=== PATIENT | male | born 1940 | race Caucasian/White ===

== ENCOUNTER 2023-10-10 10:17 | Outpatient (CLI) | payer MEDICARE, OTHER ==
--- NOTE | 2023-10-10 11:24 | Sleep Patient Instructions ---
Sleep Center Visit Summary - Patient Visit Information Reason for Visit: Initial consultation - Patient Instructions Additional Instructions: You will continue with CPAP therapy with pressure set at 12-18 cmH2O. A supply prescription will be updated with your DME. We encourage you to continue to try to lose weight. Please follow up with the sleep care office in 1 year. - Clinic Information Contact: [facility] [address] [place] [address] [email or web address] T: [phone]
--- NOTE | 2023-10-10 11:29 | SLEEP CARE CONSULTATION ---
Information from patient questionnaire entered by Solis Luther. I have reviewed and concur with the information entered by Solis Luther. This document represents the service I personally performed and the decisions made by me, Leilani Sanders ARNP. History of Present Illness Service Date and Time: 10/10/2023 1017 Reason for Visit: New patient, Previously diagnosed sleep apnea, sleep apnea on CPAP therapy, Other (Change of services) Accompanied by: Spouse (December) Date of Onset: 08/05/2014 Usual bedtime: 2300 Snores at night: Yes (Used to) Observed to quit breathing while asleep: Yes Sleeps alone due to snoring: No Reasons for waking at night: reports: Bathroom Toss, Turn, or Twitch while sleeping: No Recalls having dreams: Yes Usually gets out of bed at: 0800 Feels refreshed in the morning: Yes Morning headache: No Sleepy or fatigued during the day: No Ever fallen asleep while driving: No Takes day naps: No Dreams during day naps: No (N/A) Prior sleep studies: Yes Year and Where: [address] [facility] Type of Sleep Study: Polysomnography (Split night) Additional HPI information: LENKA HERRERA was previously diagnosed to have very severe, AHI 68.1, obstructive sleep apnea-hypopnea syndrome in sleep study at [facility] on 08/25/2017 and comes in today with spouse to establish care for CPAP therapy. - Parasomnia Symptoms Ever been unable to move upon waking from sleep: No Walks in sleep: No Talks in sleep: Yes Ever acted out dreams in sleep: No Ever felt weak in the knees when startled or emotional: No CPAP Compliance Data - Data Reviewed with Patient Average duration of nightly device use: 8 hours 59 minutes Compliance rate %: 100 (08/13/2023-10/09/2023; 58/58 days used) Current pressure setting (cmH2O): 12-18 Average residual AHI: 3 Central apnea: 0.5 Obstructive apnea: 0.4 Hypopnea: 2 Average large leak: 1.2 L/min Compliance data discussion: He has a ResMed Airsense 10 that he received in August 2023. He is using [employer] in [place] for his supplies. He is using a ResMed AirTouch F20, medium cushion. Subjective Missed days of use due to: reports: other (machine broke in Jun and had to wait until replaced in August to use again) Patient concerns: denies: aerophagia, mask discomfort, air blowing in eyes, mask leak noise, condensation in mask/hose, nasal congestion, dry mouth, nose, throat, epistaxis Observed to snore while using device: No Current pressure setting perceived as: comfortable On therapy, patient: reports: sleeping better, awakening more refreshed, being more awake and alert during the day, more rested overall. denies: drowsiness while driving Initial [facility] Sleepiness Scale score: 0 (in 2023) Past Medical History Past Medical History: reports: Hypertension, Arthritis, Gout Social History The patient's occupation is a retiree. Patient is and lives in [place]. Have you smoked in the past 12 months: No Alcohol use: Yes Alcohol amount and frequency: 2 glasses, 3-4 times a week Caffeine use: Yes Caffeine amount and frequency: 1 cup of coffee in the AM Family History Family history of sleep disordered breathing: Yes Family Hx Sleep Apnea: Sibling: Snoring, Sleep apnea - Treated Allergies and Home Medications Known drug allergies: No Drug allergies reviewed: Yes Home medication list reviewed: Yes (as listed) Allergy and home medication list: Allergies No Known Drug Allergies Allergy (Verified 10/10/23 11:10) Home Medications Allopurinol 300 mg ORAL DAILY 10/10/23 [History] Cranberry See Rx Instructions .ROUTE .COMPLEX 10/10/23 [History] Gabapentin 300 mg ORAL HS 10/10/23 [History] Glucosamine Chondroitin Cap See Rx Instructions .ROUTE .COMPLEX 10/10/23 [History] Lovastatin 20 mg ORAL DAILY 10/10/23 [History] Metoprolol Succinate 50 mg ORAL DAILY 10/10/23 [History] Multivitamin See Rx Instructions .ROUTE .COMPLEX 10/10/23 [History] Tamsulosin 0.4 mg ORAL DAILY 10/10/23 [History] hydroCHLOROthiazide 25 mg ORAL DAILY 10/10/23 [History] Review of Systems Cardiovascular: reports: high blood pressure Respiratory: reports: other (Sinus problem). denies: shortness of breath Gastrointestinal: denies: heartburn Neurological: denies: headaches Psychiatric: denies: anxiety, depression Ear/Nose/Throat: reports: sinus problems Musculoskeletal: reports: joint pain (/stiffness), back pain, muscle pain or cramping (sometimes) Immunologic: reports: sneezing (/runny nose) Physical Exam Vital signs obtained and entered by: Leilani Lockwood NP Blood Pressure: 119/64 Cuff size: regular Heart Rate: 42 O2 Saturation: 97 Height: 5 ft 10 in Weight: 329 lb 3.2 oz Body Mass Index: 47.2 BMI Classification: Morbidly Obese Heart: regular rate and rhythm Lungs: clear bilaterally Impression and Plan 1. Obstructive Sleep Apnea-Hypopnea Syndrome, very severe, with good treatment compliance and good apnea control. On CPAP therapy, the patient has better sleep quality and is more rested overall. Patient states he had his machine stopped working that he had gotten through the [employer] recall, DreamStation 2. He was finally able to get a replacement and now has a ResMed air sense 10 that is working well. Patient has significant improvement of their sleep apnea and is satisfied with current CPAP therapy. Patient denies problems with oral dryness, nasal congestion, epistaxis, skin irritation or aerophagia. Patient's apnea severity and rationale for treatment to reduce apnea, improve sleep quality and reduce cardiovascular and cerebrovascular events was reviewed. I also reviewed the benefit of consistent device use of CPAP for hypertension. 2. Obesity, unspecified. Currently patients BMI is 47.2. Obesity increases the risk of apnea, CPAP pressure requirements and overall health risks especially cardiovascular and diabetes. Thus patient is advised to lose weight. * Continue auto CPAP pressure at 12-18 cmH2O * Update supply prescription * Notify me if snoring with mask or feeling that the pressure is too much or too little * Attempt to lose weight * Call this office if any problems using CPAP * Return for follow up in 12 months, or sooner if concerns arise Counseling Topics: Spare mask, Weight loss health impact Prescriptions: Device supplies Follow up with Sleep Care in: 1 year Visit Type: In Office Time Spent with Patient (minutes): 48 Provider Statement: I spent 100% of the Face to Face Visit with the patient with greater than 50% spent counseling the patient and coordination of care.
[2023-10-10 11:30] VITALS: BP 119/64; O2SAT 97
== END 2023-10-10 10:18 | disposition home or self-care (01) ==
LOC: SC 10:17
PROVIDERS: ATTEND Nurse Practitioner Family
DX: G47.33 Obstructive sleep apnea (adult) (pediatric) (principal); E66.01 Morbid (severe) obesity due to excess calories; Z68.42 Body mass index [BMI] 45.0-49.9, adult
CPT/HCPCS: 99203; G0463; 99212